=== PATIENT | female | born 1940 | race African-American/Black ===

== ENCOUNTER 2017-12-03 15:00 | Inpatient (IN) | payer MEDICARE, BC ==
[2017-12-03 16:13] LABS: Bilirubin Moderate (Negative); Blood, Urine Negative (Negative); Glucose, Urine (Dipstick) Negative (Negative); Leukocyte Negative (Negative); Nitrite Negative (Negative); Protein, Urine (Dipstick) 100 mg/dL (Neg-Trace); Urobilinogen 0.2 mg/dL (0.2-1.0)
[2017-12-03 16:14] LABS: Clarity Cloudy (Clear)
[2017-12-03 16:15] LABS: Specific Gravity, Urine 1.022 (1.002-1.036)
[2017-12-03 16:15] LABS: Actual Bicarbonate (HCO3a) 8.2 mEq/L (22-28); Base Excess (BEa) -18.8 mEq/L (-2.0 to +3.0); CO2 Tension 23.8 mmHg (35.0-45.0); O2 Tension (PaO2) 117.8 mmHg (> 70.0); pH, Arterial 7.16 (7.35-7.45)
[2017-12-03 16:16] LABS: Analyzer IN Cardio ER; Calcium, Ionized 1.3 mmol/L (1.12-1.30); Hemoglobin (Hb) 13.3 g/dL (12.0-16.0); Puncture Site LBA
[2017-12-03 16:26] LABS: Bacteria/HPF None Seen HPF (None Seen); Hyaline Casts/LPF NONE SEEN LPF (0-3 Hyaline); RBC/HPF 0-3 HPF (0-3); WBC/HPF 0-3 HPF (0-3)
[2017-12-03] MEDS ORDERED: Fentanyl 100 MCG/2 ML VIAL ONE (16:35)
[2017-12-03 16:42] LABS: ALT (SGPT) 12 U/L (8-55); AST (SGOT) 29 U/L (5-34); Alkaline Phosphatase 187 U/L (40-150); Anion Gap 31 mmol/L (10-20); BUN (Urea Nitrogen) 76 mg/dL (9.8-20.1); Bilirubin, Total 0.9 mg/dL (0.2-1.2); Calc. Creatinine Clearance 0 mL/min (70-130); Calcium 10.4 mg/dL (7.8-10.44); Carbon Dioxide 11 mmol/L (23-31); Chloride 96 mmol/L (98-107); Estimated GFR-MDRD 10; Globulin 4.5 g/dL (2.4-3.5); Glucose 193 mg/dL (83-110); Magnesium 2.2 mg/dL (1.6-2.6); Protein, Total 8.5 g/dL (6.0-8.3); Sodium 133 mmol/L (136-145)
[2017-12-03] MEDS ORDERED: DOPamine 400 MG/D5W 250 ML 250 ML ONE (16:42)
--- NOTE | 2017-12-03 17:06 | RAD ---
PORTABLE CHEST: 12/03/17 HISTORY: Dyspnea. COMPARISON: A 10/21/16 study. Heart size is enlarged with a pacemaker in place. There is bibasilar lung changes. The film is of sub optimal inspiration. This is probably related to atelectasis rather than infiltrates. No signs of ove rt failure. IMPRESSION: Moderate bibasilar mainly interstitial lung changes compatible with atelectasis versus infiltrate. Ch anges are slightly more confluent in the right lower lobe. POS: H
[2017-12-03] MEDS ORDERED: Furosemide 100 MG/10 ML VIAL ONE (17:35)
[2017-12-03] MEDS ORDERED: Lorazepam 2 MG/ML VIAL SLOW IVP PRN (18:41)
[2017-12-03 20:47] VITALS: BP 57/36; TEMP 97.5; BMI 32.5
[2017-12-03] MEDS ORDERED: Scopolamine 1.5 mg/72 hour Patch TD SCH (21:00)
[2017-12-03 21:23] LABS: Band 1 % (5-11); Hemoglobin 13.5 g/dL (12.0-16.0); Lymphocytes 20 % (21-51); MDiff Complete? YES; Mean Corpuscular HGB CONC 32.6 g/dL (32.0-36.0); Mean Corpuscular Hemoglobin 26.7 pg (27.0-31.0); Mean Corpuscular Volume 81.9 fl (81.0-99.0); Mean Platelet Volume 9.1 fL (7.4-10.4); Monocytes 11 % (0-10); Neutrophil 68 % (42-75); PLT Morphology Comment Appears Adequate; Platelet Count 229 thou/uL (130-400); RBC Distribution Width 16.3 % (11.5-14.5); Red Blood Cell (RBC) Count 5.06 mill/uL (4.20-5.40); White Blood Cell (WBC) Count 15.7 thou/uL (4.8-10.8)
--- NOTE | 2017-12-04 00:16 | HP ---
PRIMARY CARE PHYSICIAN: Valerio Koch MD REASON FOR ADMISSION: Septic shock, severe metabolic acidosis. HISTORY OF PRESENT ILLNESS: A 77-year-old female who was brought to emergency room for generalized w eakness. The patient was not able to provide any history because she was extremely confused, weak, a nd lethargic. Family was present at bedside. The patient was not eating or drinking for the last se veral days. She had a gradual decline in her condition. She was not mobile. The patient has histor y of congestive heart failure with a pacemaker. When this patient came to emergency room, her lowest blood pressure was 48/35. She was febrile. She was tachypneic and she was hypoxic. We spoke with the family member and family member decided to make her comfortable. They do not want any kind of aggressive intervention. They decided to keep her in hospice type of care. Family decid ed to make her DNR and DNI. Today, in the emergency room, she was found with septic shock. She had severe metabolic acidosis and acute kidney failure. In the emergency room, the patient was given Rocephin, azithromycin, Lasix 60 mg, fentanyl 25 mcg. Dopamine drip was started and IV fluid given. When the patient's family member decided to keep her comfortable, at that point, we admitted this pat ient on medical floor for comfort care and subsequently around 2105 hours, the patient and de ath was pronounced and body was released for . Hospice team has not come by and saw her, surekha islas the patient before Hospice arrival. REVIEW OF SYSTEMS: All review of systems tried to be reviewed with the patient, but unable to review at this point because of encephalopathy. PAST MEDICAL HISTORY: Hypertension; congestive heart failure; history of cardiac arrest, required CP R. PAST SURGICAL HISTORY: Cataract surgery, tubal ligation, pacemaker. PAST PSYCHIATRIC HISTORY: Reviewed and negative. SOCIAL HISTORY: The patient has history of drinking alcohol occasionally. She has history of chewin g tobacco. No illicit drug abuse. FAMILY HISTORY: No strong family history of premature coronary artery disease, stroke, or cancer. EMERGENCY ROOM COURSE: The patient was given Rocephin, azithromycin, fentanyl 25 mcg, dopamine drip, IV fluid 2 liter, Lasix 60 mg. ALLERGIES: No known drug allergy. CURRENT HOME MEDICATIONS: Imdur 30 mg daily, amiodarone 200 mg daily, Eliquis 2.5 mg twice daily, La six 20 mg twice daily, Toprol 25 mg twice daily, Lipitor 10 mg p.o. at bedtime, ranitidine 150 mg p.o . daily. PHYSICAL EXAMINATION: VITAL SIGNS: Blood pressure 48/35, pulse 70, respiratory rate 32, saturation 94% on nonrebreather, t emperature 99.2. Weight 84.8 kilogram. GENERAL: The patient was tachypneic, hypotensive. HEENT: Normocephalic, atraumatic. Eyes: Pupils round and reactive to light. ENT: Dry mucous membrane. NECK: Supple. No JVD, no thyromegaly. LUNGS: Air entry reduced on both sides. No wheeze. No accessory muscles of respiration in use. CARDIAC: S1, S2 irregularly irregular. Systolic murmur present. No gallop, no rub. ABDOMEN: Soft, mildly distended. Periumbilical hernia noted. BACK: Unremarkable. No CVA tenderness. EXTREMITIES: Upper extremities: Passive movement of all joints were normal. Lower extremities: Bi lateral lower extremity edema noted. Good pulsation. NEUROLOGIC: Nonfocal examination. SKIN: Stage II decubitus ulcer on sacrum. PSYCHIATRIC: Flat affect. This patient's physical examination was before patient . SIGNIFICANT LABORATORY DATA: EKG showing atrial fibrillation with controlled ventricular response. Chest x-ray showing bilateral vascular congestion, right middle lobe infiltration, cardiomegaly. CBC : WBC 15.7, hemoglobin 13.5, platelet 229 with bandemia. ABG: PH 7.16, bicarbonate 8.2, pCO2 of 23 .8, pO2 of 117.8, saturation 98%. BMP: Sodium 133, potassium 5, chloride 96, carbon dioxide 11, ani on gap 31, BUN 76, creatinine 5.29, glucose 193, calcium 10.4, magnesium 2.2. LFT: AST 29, ALT 12, alkaline phosphatase 187, albumin 4. BNP was 627. TSH was 2.66. Urinalysis was unremarkable. ASSESSMENT: 1. Septic shock with severe sepsis with acute organ dysfunction including acute kidney failure and h ence metabolic encephalopathy. 2. Acute kidney failure with severe metabolic acidosis. 3. Community-acquired bacterial pneumonia. 4. Acute hypoxic respiratory failure. 5. History of congestive heart failure with ejection fraction 50%, chronic anticoagulation, hyperten afsaneh, dyslipidemia, atrial fibrillation with controlled ventricular response, obesity with body mass index 32. PLAN: After extensive discussion with the patient's medical power of trial attorney, granddaughter Avis Garcia, the patient was kept under hospice care. The patient was made DNR and DNI. We made her comfo rtable on medical floor. All aggressive and specific therapy was discontinued per patient's family m ember request. The patient at 2104 and was pronounced and body was released for fu neral.
--- NOTE | 2017-12-04 00:37 | DS ---
DATE OF ADMISSION: 12/03/2017 at 1842 hours. DATE OF : 12/03/2017 at 2105 hours. PRIMARY CAUSE OF : Septic shock, severe sepsis with acute organ dysfunction, acute hypoxic resp iratory failure, acute kidney failure, severe metabolic acidosis, acute metabolic encephalopathy, com munity-acquired bacterial pneumonia. CONTRIBUTING DIAGNOSES: Atrial fibrillation, hypertension, chronic diastolic heart failure. HOSPITAL SUMMARY: Please see my HPI dictated earlier today. This patient was brought to ER for anor exia, generalized weakness, and poor appetite. She was hypotensive, tachycardic, tachypneic. She wa s in septic shock. She had acute organ dysfunction with acute kidney failure, severe metabolic acido sis. She had atrial fibrillation on EKG, she had elevated BNP. She was treated with antibiotic ther apy, IV fluid, and dopamine in the emergency room. After discussion with the family member, patient was made DNR/DNI and family member wanted to make her comfortable based on patient request. The marina ent was admitted as a hospice care. Patient at 2105 hours and was pronounced and body was released for .
== END 2017-12-03 21:05 | disposition expired | DRG 871 ==
LOC: ERS 15:00 → T4-B 18:42
PROVIDERS: ADMIT Internal Medicine; ATTEND Internal Medicine
DX: A41.9 Sepsis, unspecified organism (principal); R65.21 Severe sepsis with septic shock; G93.41 Metabolic encephalopathy; J96.01 Acute respiratory failure with hypoxia; J15.9 Unspecified bacterial pneumonia; E87.2 Acidosis; N17.9 Acute kidney failure, unspecified; I50.32 Chronic diastolic (congestive) heart failure; Z95.0 Presence of cardiac pacemaker; Z66 Do not resuscitate; Z51.5 Encounter for palliative care; Z86.74 Personal history of sudden cardiac arrest; I11.0 Hypertensive heart disease with heart failure; E78.5 Hyperlipidemia, unspecified; I48.91 Unspecified atrial fibrillation; E66.9 Obesity, unspecified; Z68.32 Body mass index [BMI] 32.0-32.9, adult
CPT/HCPCS: 36415; 71045; 80053; 81003; 81015; 82805; 83735; 83880; 84443; 85025; 93005; A4353; J1265; J1940; J3010